=== PATIENT | male | born 1970 | race Caucasian/White ===

== ENCOUNTER 2017-09-16 09:40 | Inpatient (IN) | payer BC, OTHER ==
[~2017-09-16] VITALS: Ht 170.2 cm; Wt 68.0 kg
[2017-09-16] MEDS ORDERED: CLONIDINE HCL 0.1 MG TABLET PO PRN (23:30)
[2017-09-16] MEDS ORDERED: MIRALAX 17 GM POWD.PACK PO PRN (23:30)
[2017-09-16] MEDS ORDERED: LOPERAMIDE HCL 2 MG CAPSULE PO PRN ×2 (23:30)
[2017-09-16] MEDS ORDERED: ONDANSETRON 4 MG/2 ML VIAL IM PRN (23:30)
[2017-09-16] MEDS ORDERED: MAGNESIUM HYDROXIDE 30 ML LIQUID UDC PO PRN (23:30)
[2017-09-16] MEDS ORDERED: ONDANSETRON ODT 4 MG TAB.RAPDIS SL PRN (23:30)
[2017-09-16] MEDS ORDERED: LORAZEPAM 2 MG/1 ML VIAL IM PRN (23:30)
[2017-09-16] MEDS ORDERED: IBUPROFEN 400 MG TABLET PO PRN (23:30)
[2017-09-16] MEDS ORDERED: THIAMINE HCL 200 MG/2 ML VIAL IM ONE (23:30)
[2017-09-16] MEDS ORDERED: DICYCLOMINE HCL 20 MG TABLET PO PRN (23:30)
[2017-09-16] MEDS ORDERED: LORAZEPAM 1 MG TABLET PO PRN ×2 (23:30)
[2017-09-16] MEDS ORDERED: ACETAMINOPHEN 325 MG TABLET PO PRN (23:30)
[2017-09-16] MEDS ORDERED: diphenhydrAMINE 50 MG CAPSULE PO PRN (23:30)
[2017-09-16 23:41] LABS: BASOPHILS % (AUTO) 0.7 % (0.0-2.0); EOSINOPHILS # (AUTO) 0.2 K/uL (0.0-0.7); EOSINOPHILS % (AUTO) 2.7 % (0.0-7.0); HEMOGLOBIN 14.6 g/dL (12.5-16.3); LYMPHOCYTES # (AUTO) 1.5 K/uL (20.0-40.0); LYMPHOCYTES % (AUTO) 25.4 % (20.5-51.5); MEAN CORPUSCULAR HEMOGLOBIN 32.7 uug (23.8-33.4); MEAN CORPUSCULAR HGB CONC 34 g/dL (32.5-36.3); MEAN CORPUSCULAR VOLUME 96.3 fL (73.0-96.2); MONOCYTES # (AUTO) 0.6 K/uL (2.0-10.0); MONOCYTES % (AUTO) 10.7 % (0.0-11.0); NEUTROPHILS # (AUTO) 3.5 K/uL (1.8-8.9); NEUTROPHILS % (AUTO) 60.5 % (38.5-71.5); RED BLOOD CELL COUNT(AUTO) 4.47 MIL/uL (4.06-5.63); WHITE BLOOD COUNT (AUTO) 5.8 K/uL (3.6-10.2)
[2017-09-16] MEDS ORDERED: LORAZEPAM 1 MG TABLET PO SCH (23:50)
[2017-09-16] MEDS ORDERED: PROP80CA PO (23:54)
[2017-09-17] VITALS (8 sets, daily range): BP systolic 107–146; BP diastolic 70–98
[2017-09-17 00:01] LABS: PLATELET COUNT (AUTO) 46 K/uL (152-348)
[2017-09-17 00:12] LABS: BILIRUBIN,TOTAL 1.7 mg/dL (0.2-1.0); CREATININE 0.9 mg/dL (0.6-1.3); MAGNESIUM 1.5 mg/dL (1.8-2.4); POTASSIUM 3.4 mmol/L (3.5-5.1); TOTAL PROTEIN, SERUM 8.2 g/dL (6.4-8.2)
[2017-09-17 01:00] LABS: *AMPHETAMINE, URINE NEGATIVE (NEGATIVE); *BARBITURATE, URINE NEGATIVE (NEGATIVE); *CANNABINOID, URINE NEGATIVE (NEGATIVE); *COCCAINE, URINE NEGATIVE (NEGATIVE); *OPIATE, URINE NEGATIVE (NEGATIVE); *PHENCYCLIDINE SCREEN,URINE NEGATIVE (NEGATIVE)
[2017-09-17] MEDS ORDERED: MAGNESIUM OXIDE 400 MG TABLET PO ONE (01:15)
[2017-09-17] MEDS ORDERED: POTASSIUM CHLORIDE 20 MEQ TAB.PRT.SR PO ONE (01:15)
[2017-09-17 02:12] LABS: BAND % (MANUAL) 1 % (0-10); EOSINOPHILS % (MANUAL) 1 % (0-8); LYMPHOCYTES % (MANUAL) 28 % (20-40); METAMYELOCYTES % 1 % (0-1); MONOCYTES % (MANUAL) 2 % (2-10); MYELOCYTES % 1 % (0-0); NEUTROPHILS % (MANUAL) 63 % (42-75)
[2017-09-17] MEDS: THIAMINE HCL 100 MG TABLET PO SCH (08:48)
[2017-09-17] MEDS: FOLIC ACID 1 MG TABLET PO SCH (08:48)
[2017-09-17] MEDS: MAG HYDROX/AL HYDROX/SIMETH 30 ML LIQUID UDC PO PRN (08:48)
[2017-09-17] MEDS ORDERED: LORAZEPAM 1 MG TABLET PO SCH (09:00)
[2017-09-17] MEDS ORDERED: TUBERCULIN,PURIF.PROT.DERIV. 5 TU/0.1 ML TEST ID ONE (09:00)
[2017-09-17] MEDS: MULTIVITAMINS,THERAPEUTIC TABLET PO SCH (09:05)
[2017-09-17] MEDS ORDERED: hydrALAZINE HCL 50 MG TABLET PO PRN (11:00)
[2017-09-17] MEDS: LORAZEPAM 1 MG TABLET PO SCH ×3 (12:05→20:20)
[2017-09-17] MEDS: PROPRANOLOL HCL 20 MG TABLET PO SCH (20:20)
[2017-09-17] MEDS ORDERED: LORAZEPAM 1 MG TABLET PO ONE (23:00)
[2017-09-18] VITALS: BP 124/74
[2017-09-18 04:15] VITALS: BP 108/76
[2017-09-18 08:21] LABS: EOSINOPHILS # (AUTO) 0.2 K/uL (0.0-0.7); EOSINOPHILS % (AUTO) 4.2 % (0.0-7.0); HEMATOCRIT 41.5 % (36.7-47.1); HEMOGLOBIN 14.3 g/dL (12.5-16.3); LYMPHOCYTES # (AUTO) 1.6 K/uL (20.0-40.0); LYMPHOCYTES % (AUTO) 38.3 % (20.5-51.5); MEAN CORPUSCULAR HGB CONC 34 g/dL (32.5-36.3); MEAN CORPUSCULAR VOLUME 95.9 fL (73.0-96.2); MONOCYTES # (AUTO) 0.5 K/uL (2.0-10.0); MONOCYTES % (AUTO) 11.5 % (0.0-11.0); NEUTROPHILS # (AUTO) 1.9 K/uL (1.8-8.9); PLATELET COUNT (AUTO) 53 K/uL (152-348); RED BLOOD CELL COUNT(AUTO) 4.32 MIL/uL (4.06-5.63)
[2017-09-18 08:22] VITALS: BP 108/70
[2017-09-18] MEDS: PROPRANOLOL HCL 20 MG TABLET PO SCH ×2 (08:26→20:37)
[2017-09-18] MEDS: MULTIVITAMINS,THERAPEUTIC TABLET PO SCH (08:26)
[2017-09-18] MEDS: FOLIC ACID 1 MG TABLET PO SCH (08:27)
[2017-09-18] MEDS: THIAMINE HCL 100 MG TABLET PO SCH (08:27)
[2017-09-18 08:28] LABS: WHITE BLOOD COUNT (AUTO) 4.2 K/uL (3.6-10.2)
[2017-09-18] MEDS ORDERED: LORAZEPAM 1 MG TABLET PO SCH ×2 (09:00)
[2017-09-18 10:11] LABS: EOSINOPHILS % (MANUAL) 5 % (0-8); LYMPHOCYTES % (MANUAL) 40 % (20-40); MONOCYTES % (MANUAL) 9 % (2-10); NEUTROPHILS % (MANUAL) 45 % (42-75)
[2017-09-18 10:36] LABS: BILIRUBIN,DIRECT 0.2 mg/dL (0.0-0.2); BILIRUBIN,TOTAL 0.9 mg/dL (0.2-1.0); CREATININE 0.8 mg/dL (0.6-1.3); MAGNESIUM 2.1 mg/dL (1.8-2.4); POTASSIUM 3.6 mmol/L (3.5-5.1); TOTAL PROTEIN, SERUM 7.4 g/dL (6.4-8.2)
[2017-09-18 12:07] LABS: HEPATITIS B SURFACE AG Negative (Negative)
[2017-09-18 13:07] VITALS: BP 99/68
[2017-09-18] MEDS: LORAZEPAM 1 MG TABLET PO SCH ×3 (13:15→20:37)
[2017-09-18 17:05] VITALS: BP 130/79
[2017-09-18 20:12] VITALS: BP 130/96
[2017-09-19 00:35] VITALS: BP 92/58
[2017-09-19 04:28] VITALS: BP 100/68
[2017-09-19 08:00] VITALS: BP 120/73
[2017-09-19] MEDS: MULTIVITAMINS,THERAPEUTIC TABLET PO SCH (08:42)
[2017-09-19] MEDS: THIAMINE HCL 100 MG TABLET PO SCH (08:42)
[2017-09-19] MEDS: FOLIC ACID 1 MG TABLET PO SCH (08:42)
[2017-09-19] MEDS: LORAZEPAM 1 MG TABLET PO SCH ×3 (08:42→20:48)
[2017-09-19] MEDS: PROPRANOLOL HCL 20 MG TABLET PO SCH ×2 (08:43→20:48)
[2017-09-19] MEDS ORDERED: LORAZEPAM 1 MG TABLET PO SCH ×2 (09:00)
[2017-09-19 12:00] VITALS: BP 113/75
[2017-09-19] MEDS ORDERED: LORAZEPAM 1 MG TABLET PO ONE (12:15)
[2017-09-19] MEDS ORDERED: LORAZEPAM 1 MG TABLET PO PRN ×2 (12:15)
[2017-09-19 16:00] VITALS: BP 114/79
[2017-09-19 20:04] VITALS: BP 130/94
[2017-09-19] MEDS: GABAPENTIN 300 MG CAPSULE PO SCH (20:48)
[2017-09-20 00:34] VITALS: BP 137/86
[2017-09-20 04:36] VITALS: BP 131/78
[2017-09-20 08:00] VITALS: BP 118/73
[2017-09-20] MEDS: MULTIVITAMINS,THERAPEUTIC TABLET PO SCH (08:28)
[2017-09-20] MEDS: THIAMINE HCL 100 MG TABLET PO SCH (08:28)
[2017-09-20] MEDS: FOLIC ACID 1 MG TABLET PO SCH (08:28)
[2017-09-20] MEDS: FAMOTIDINE 20 MG TABLET PO SCH (08:28)
[2017-09-20] MEDS: GABAPENTIN 300 MG CAPSULE PO SCH ×3 (08:28→21:44)
[2017-09-20] MEDS: PROPRANOLOL HCL 20 MG TABLET PO SCH ×2 (08:28→21:43)
[2017-09-20] MEDS ORDERED: LORAZEPAM 1 MG TABLET PO SCH ×4 (09:00→21:00)
[2017-09-20 12:00] VITALS: BP 118/78
[2017-09-20] MEDS: LORAZEPAM 1 MG TABLET PO SCH ×2 (12:56→16:48)
[2017-09-20 16:24] VITALS: BP 134/93
[2017-09-20 20:34] VITALS: BP 129/90
[2017-09-21 00:42] VITALS: BP 131/86
[2017-09-21 04:12] VITALS: BP 124/83
[2017-09-21 08:00] VITALS: BP 102/69
[2017-09-21] MEDS: THIAMINE HCL 100 MG TABLET PO SCH (08:09)
[2017-09-21] MEDS: FAMOTIDINE 20 MG TABLET PO SCH (08:09)
[2017-09-21] MEDS: PROPRANOLOL HCL 20 MG TABLET PO SCH ×2 (08:09→20:57)
[2017-09-21] MEDS: GABAPENTIN 300 MG CAPSULE PO SCH ×3 (08:09→20:56)
[2017-09-21] MEDS: FOLIC ACID 1 MG TABLET PO SCH (08:09)
[2017-09-21] MEDS: MULTIVITAMINS,THERAPEUTIC TABLET PO SCH (08:10)
[2017-09-21] MEDS ORDERED: LORAZEPAM 1 MG TABLET PO SCH ×4 (09:00→21:00)
[2017-09-21 12:00] VITALS: BP 114/82
[2017-09-21 16:00] VITALS: BP 124/84
[2017-09-21 20:00] VITALS: BP 140/97
[2017-09-22 04:00] VITALS: BP 109/74
[2017-09-22] MEDS: MAG HYDROX/AL HYDROX/SIMETH 30 ML LIQUID UDC PO PRN ×2 (04:48→22:26)
[2017-09-22 08:00] VITALS: BP 115/76
[2017-09-22] MEDS: FOLIC ACID 1 MG TABLET PO SCH (08:38)
[2017-09-22] MEDS: FAMOTIDINE 20 MG TABLET PO SCH (08:38)
[2017-09-22] MEDS: THIAMINE HCL 100 MG TABLET PO SCH (08:38)
[2017-09-22] MEDS: MULTIVITAMINS,THERAPEUTIC TABLET PO SCH (08:38)
[2017-09-22] MEDS: GABAPENTIN 300 MG CAPSULE PO SCH ×3 (08:38→20:52)
[2017-09-22] MEDS: LORAZEPAM 1 MG TABLET PO SCH ×2 (08:38→20:53)
[2017-09-22] MEDS: PROPRANOLOL HCL 20 MG TABLET PO SCH ×2 (08:39→20:53)
[2017-09-22 12:00] VITALS: BP 124/83
[2017-09-22 16:00] VITALS: BP 116/82
[2017-09-22 20:00] VITALS: BP 132/92
[2017-09-23] VITALS: BP 121/86
[2017-09-23 04:00] VITALS: BP 95/57
[2017-09-23 08:00] VITALS: BP 115/66
[2017-09-23] MEDS: FAMOTIDINE 20 MG TABLET PO SCH (08:33)
[2017-09-23] MEDS: THIAMINE HCL 100 MG TABLET PO SCH (08:33)
[2017-09-23] MEDS: GABAPENTIN 300 MG CAPSULE PO SCH ×3 (08:33→20:59)
[2017-09-23] MEDS: MULTIVITAMINS,THERAPEUTIC TABLET PO SCH (08:33)
[2017-09-23] MEDS: FOLIC ACID 1 MG TABLET PO SCH (08:33)
[2017-09-23] MEDS: PROPRANOLOL HCL 20 MG TABLET PO SCH ×2 (08:35→21:00)
[2017-09-23] MEDS ORDERED: LORAZEPAM 1 MG TABLET PO SCH (09:00)
[2017-09-23 12:00] VITALS: BP 108/71
[2017-09-23 16:00] VITALS: BP 131/78
[2017-09-23] MEDS ORDERED: FAMO20TA8 PO (16:29)
[2017-09-23] MEDS ORDERED: GABA-534 PO ×2 (16:29)
[2017-09-23] MEDS ORDERED: DIPH50CA37 PO (16:29)
[2017-09-23] MEDS ORDERED: PROP20TA19 PO (16:29)
[2017-09-23 20:00] VITALS: BP 140/92
[2017-09-24] VITALS: BP 136/92
[2017-09-24 04:00] VITALS: BP 127/84
[2017-09-24 08:00] VITALS: BP 147/96
[2017-09-24 08:09] VITALS: BP 147/96
[2017-09-24] MEDS: MULTIVITAMINS,THERAPEUTIC TABLET PO SCH (08:09)
[2017-09-24] MEDS: GABAPENTIN 300 MG CAPSULE PO SCH (08:09)
[2017-09-24] MEDS: PROPRANOLOL HCL 20 MG TABLET PO SCH (08:09)
[2017-09-24] MEDS: FAMOTIDINE 20 MG TABLET PO SCH (08:09)
[2017-09-24] MEDS: FOLIC ACID 1 MG TABLET PO SCH (08:09)
[2017-09-24] MEDS: THIAMINE HCL 100 MG TABLET PO SCH (08:09)
== END 2017-09-24 09:35 | disposition other institution (70) | DRG 895 ==
LOC: SRC 22:55
PROVIDERS: ADMIT Internal Medicine; ATTEND Internal Medicine
DX: F10.232 Alcohol dependence with withdrawal with perceptual disturbance (principal); D69.6 Thrombocytopenia, unspecified; I15.9 Secondary hypertension, unspecified; K70.10 Alcoholic hepatitis without ascites; E87.6 Hypokalemia; Y90.9 Presence of alcohol in blood, level not specified; E83.42 Hypomagnesemia; Z91.14 Patient's other noncompliance with medication regimen; F17.210 Nicotine dependence, cigarettes, uncomplicated; Z91.89 Other specified personal risk factors, not elsewhere classified; Z81.1 Family history of alcohol abuse and dependence; F41.9 Anxiety disorder, unspecified; R73.9 Hyperglycemia, unspecified
CPT/HCPCS: 36415; 70030-TC; 80307; 80346; 82746; 83735; 84100; 85025; 86580; 86592; 86705; 86803; 87340; 87806; G0480; J3411; Q0162